=== PATIENT | female | born 1985 | race African-American/Black ===

== ENCOUNTER 2017-01-16 09:48 | Emergency (ER) | payer SELFPAY ==
[2017-01-16 10:04] VITALS: BP 144/95
--- NOTE | 2017-01-16 10:18 | ER Document Report ---
HPI - HPI Patient complains to provider of: Toothache Onset: Last week Onset/Duration: Persistent Quality of pain: Throbbing Severity: Moderate Pain Level: 4 Associated Symptoms: None Exacerbated by: Food Relieved by: Denies Similar symptoms previously: Yes Recently seen / treated by doctor: No - ROS ROS below otherwise negative: Yes Systems Reviewed and Negative: Yes All other systems reviewed and negative - CONSTITUTIONAL Constitutional: DENIES: Fever - EENT EENT: DENIES: Nasal Drainage-Purulent - NEURO Neurology: DENIES: Headache - CARDIOVASCULAR Cardiovascular: DENIES: Chest pain - RESPIRATORY Respiratory: DENIES: Trouble Breathing - GASTROINTESTINAL Gastrointestinal: DENIES: Abdominal Pain - URINARY Urinary: DENIES: Dysuria - REPRODUCTIVE Reproductive: DENIES: : - MUSCULOSKELETAL Musculoskeletal: DENIES: Extremity pain - DERM Skin Color: Normal Skin Problems: None Past Medical History - General Information source: Patient - Social History Smoking Status: Current Every Day Smoker Cigarette use (# per day): Yes Frequency of alcohol use: None Drug Abuse: None Lives with: Spouse/Significant other Family History: Reviewed & Not Pertinent Patient has suicidal ideation: No Patient has homicidal ideation: No - Medical History Medical History: Negative Surgical Hx: Negative - Immunizations Immunizations up to date: Yes Hx Diphtheria, Pertussis, Tetanus Vaccination: Yes Vertical Provider Document - CONSTITUTIONAL Agree With Documented VS: Yes Exam Limitations: No Limitations General Appearance: WD/WN, No Apparent Distress - INFECTION CONTROL TRAVEL OUTSIDE OF THE [place] IN LAST 30 DAYS: No - HEENT HEENT: Atraumatic Mouth Diagram: 1 - decay, no gum swelling Notes: Patient has very poor dentition, with multiple decayed and broken teeth. - NECK Neck: Normal Inspection - RESPIRATORY Respiratory: Breath Sounds Normal, No Respiratory Distress O2 Sat by Pulse Oximetry: 99 - CARDIOVASCULAR Cardiovascular: Regular Rate, Regular Rhythm - MUSCULOSKELETAL/EXTREMETIES Musculoskeletal/Extremeties: MAEW, FROM - NEURO Level of Consciousness: Awake, Alert, Appropriate - DERM Integumentary: Warm, Dry Course - Vital Signs Vital signs: Temp Pulse Resp BP Pulse Ox 97.9 F 77 16 144/95 H 99 01/16/17 10:03 01/16/17 10:03 01/16/17 10:03 01/16/17 10:03 01/16/17 10:03 Discharge - Discharge Clinical Impression: Toothache Condition: Good Disposition: HOME, SELF-CARE Instructions: Toothache ([facility]), Oral Narcotic Medication ([facility]), Penicillin V K ( [facility]) Additional Instructions: Meds as prescribed OTC ibuprofen for pain 3 times a day Follow-up with dentist for further evaluation of dental problems List of dental clinics provided to you return as needed Prescriptions: Hydrocodone/Acetaminophen [[place] 5-325 mg Tablet] 1 tab PO PRN PRN #15 tablet PRN Reason: Penicillin V Potassium [Penicillin Vk 250 mg Tablet] 250 mg PO Q6 #28 tablet Forms: Return to Work
== END 2017-01-16 10:20 | disposition home or self-care (01) ==
LOC: ER 09:48
DX: K08.89 Other specified disorders of teeth and supporting structures (principal); F17.210 Nicotine dependence, cigarettes, uncomplicated
CPT/HCPCS: 99282

== ENCOUNTER 2017-07-27 00:33 | Emergency (ER) | payer SELFPAY ==
[2017-07-27 00:43] VITALS: BP 156/108
--- NOTE | 2017-07-27 00:48 | ER Document Report ---
HPI - HPI Patient complains to provider of: left side tooth pain Onset: This morning Onset/Duration: Sudden Pain Level: 5 Context: 31-year-old smoker female that knows she has multiple teeth with decay is complaining of left-sided upper and lower tooth pain that woke her up tonight. No fever or facial swelling. Associated Symptoms: None Exacerbated by: Denies Relieved by: Denies Similar symptoms previously: Yes Recently seen / treated by doctor: No - ROS ROS below otherwise negative: Yes Systems Reviewed and Negative: Yes All other systems reviewed and negative - REPRODUCTIVE Reproductive: DENIES: : Past Medical History - General Information source: Patient - Social History Smoking Status: Current Every Day Smoker Frequency of alcohol use: Occasional Drug Abuse: None Lives with: Spouse/Significant other Family History: Reviewed & Not Pertinent - Medical History Medical History: Negative Renal/ Medical History: Denies: Hx Peritoneal Dialysis Surgical Hx: Negative - Immunizations Immunizations up to date: Yes Hx Diphtheria, Pertussis, Tetanus Vaccination: Yes Vertical Provider Document - CONSTITUTIONAL Agree With Documented VS: Yes Exam Limitations: No Limitations General Appearance: No Apparent Distress - INFECTION CONTROL TRAVEL OUTSIDE OF THE [place] IN LAST 30 DAYS: No - HEENT HEENT: Normocephalic Notes: extensive dental decay, plaque and gingivitis throughout, no abscess - NECK Neck: Supple. negative: Lymphadenopathy-Left, Lymphadenopathy-Right - RESPIRATORY Respiratory: Breath Sounds Normal, No Respiratory Distress O2 Sat by Pulse Oximetry: 100 - CARDIOVASCULAR Cardiovascular: Regular Rate, Regular Rhythm - NEURO Level of Consciousness: Awake, Alert, Appropriate - DERM Integumentary: Warm, Dry Course - Vital Signs Vital signs: Temp Pulse Resp BP Pulse Ox 98.4 F 94 156/108 H 100 07/27/17 00:39 07/27/17 00:39 07/27/17 00:39 07/27/17 00:39 Discharge - Discharge Clinical Impression: dental pain and decay, elevated blood pressure reading Condition: Good Disposition: HOME, SELF-CARE Instructions: Antinausea Medication ([facility]), Dentist, Family Physicians / Practices, Penicillin V K ([facility]), Toothache ([facility]), Topical Lidocaine ([facility]) Additional Instructions: see the dentist see family practice doctor for your blood pressure recheck to er if fever or facial swelling heat Prescriptions: Penicillin V Potassium [Penicillin Vk 500 mg Tablet] 500 mg PO QID #40 tablet
[2017-07-27] MEDS ORDERED: PENICILLIN V POTASSIUM 500 MG TABLET PO ONE (00:59)
[2017-07-27] MEDS ORDERED: LIDOCAINE 2% VISCOUS SOLN 20 ML UDCUP PO ONE (00:59)
[2017-07-27] MEDS ORDERED: ONDANSETRON 4 MG TAB.RAPDIS PO ONE (00:59)
[2017-07-27] MEDS ORDERED: ACETAMINOPHEN 325 MG TABLET PO ONE (00:59)
== END 2017-07-27 01:16 | disposition home or self-care (01) ==
LOC: ER 00:33
DX: K08.89 Other specified disorders of teeth and supporting structures (principal); K02.9 Dental caries, unspecified; R03.0 Elevated blood-pressure reading, without diagnosis of hypertension; F17.200 Nicotine dependence, unspecified, uncomplicated
CPT/HCPCS: 99282; S0119; J3490

== ENCOUNTER 2018-04-08 19:17 | Emergency (ER) | payer SELFPAY ==
[2018-04-08] MEDS ORDERED: ONDANSETRON HCL INJ/PF 4 MG/2 ML SDV IV ONE (20:34)
[2018-04-08] MEDS ORDERED: NORMAL SALINE 1000 ML 1,000 ML IV ONE (20:34)
[2018-04-08] MEDS ORDERED: ONDANSETRON 4 MG TAB.RAPDIS PO ONE (22:53)
--- NOTE | 2018-04-08 22:54 | ER Document Report ---
ED Medical Screen (RME) - General Chief Complaint: Nausea/Vomiting Stated Complaint: SORE THROAT Time Seen by Provider: 04/08/18 22:53 Notes: 32-year-old female with 2 different complaints. First complaint is and swelling on the left side of her neck. Second complaint is persistent vomiting today with generalized abdominal and flank pain with stomach upset. Unsure if she is . Denies vaginal bleeding or discharge. No fever. TRAVEL OUTSIDE OF THE [place] IN LAST 30 DAYS: No - Related Data Allergies/Adverse Reactions: No Known Allergies Allergy (Verified 01/16/17 10:00) Past Medical History Renal/ Medical History: Denies: Hx Peritoneal Dialysis - Immunizations Immunizations up to date: Yes Hx Diphtheria, Pertussis, Tetanus Vaccination: Yes Physical Exam - Vital signs Vitals: Temp Pulse Resp BP Pulse Ox 97.5 F 59 L 16 129/80 H 100 04/08/18 20:02 04/08/18 20:02 04/08/18 20:02 04/08/18 20:02 04/08/18 20:02 - HEENT Pharynx: No: Exudate, Uvular edema, Potential airway comprom. Neck: Anterior cervical chain - Left anterior cervical chain adenopathy - Abdominal Tenderness: Tender - Suprapubic and midabdominal tenderness, otherwise unremarkable exam Course - Vital Signs Vital signs: Temp Pulse Resp BP Pulse Ox 97.5 F 59 L 16 129/80 H 100 04/08/18 20:02 04/08/18 20:02 04/08/18 20:02 04/08/18 20:02 04/08/18 20:02
[2018-04-09 00:37] LABS: HEMATOCRIT 44.9 % (36.0-47.0); HEMOGLOBIN 14.6 g/dL (12.0-15.5); MEAN CORPUSCULAR HEMOGLOBIN 29.9 pg (27.0-33.4); MEAN CORPUSCULAR HGB CONC 32.6 g/dL (32.0-36.0); MEAN CORPUSCULAR VOLUME 92 fl (80-97); PLATELET COUNT 223 10^3/uL (150-450); RED CELL DISTRIBUTION WIDTH 13.3 % (11.5-14.0)
[2018-04-09 00:49] LABS: ALANINE AMINOTRANSFERASE 40 U/L (9-52); ALBUMIN 5.1 g/dL (3.5-5.0); ALKALINE PHOSPHATASE 59 U/L (38-126); ANION GAP 14 (5-19); ASPARTATE AMINO TRANSFERASE 40 U/L (14-36); BILIRUBIN,DIRECT 0.2 mg/dL (0.0-0.4); BLOOD UREA NITROGEN 11 mg/dL (7-20); CALCIUM 10.2 mg/dL (8.4-10.2); CARBON DIOXIDE 27 mmol/L (22-30); CHLORIDE 103 mmol/L (98-107); GLUCOSE 106 mg/dL (75-110); POTASSIUM 3.9 mmol/L (3.6-5.0); SODIUM 143.5 mmol/L (137-145); TOTAL PROTEIN 9.5 g/dL (6.3-8.2)
[2018-04-09 00:57] LABS: ABSOLUTE LYMPHOCYTES# (MANUAL) 0.6 10^3/uL (0.5-4.7); ABSOLUTE MONOCYTES # (MANUAL) 0.3 10^3/uL (0.1-1.4); ABSOLUTE NEUTROPHILS# (MANUAL) 13.2 10^3/uL (1.7-8.2); BASOPHILS % (MANUAL) 0 % (0-2); EOSINOPHILS % (MANUAL) 0 % (0-6); LYMPHOCYTES % (MANUAL) 4 % (13-45); MONOCYTES % (MANUAL) 2 % (3-13); PLATELET COMMENT ADEQUATE; PLATELET LARGE PRESENT; SCHISTOCYTES SLIGHT; SEGMENTED NEUTROPHILS % (MAN) 94 % (42-78); TOTAL CELLS COUNTED 100; TOXIC GRANULATION 1+
[2018-04-09 01:03] LABS: APPEARANCE,URINE SLIGHTLY-CLOUDY; BILIRUBIN,URINE NEGATIVE (NEGATIVE); COLOR,URINE YELLOW; GLUCOSE, URINE NEGATIVE (NEGATIVE); KETONES,URINE 20 mg/dL (NEGATIVE); LEUKOCYTE ESTERASE,URINE NEGATIVE (NEGATIVE); NITRITE,URINE NEGATIVE (NEGATIVE); PROTEIN,URINE 30 mg/dL (NEGATIVE); URINE SPECIFIC GRAVITY 1.021
[2018-04-09] MEDS ORDERED: DEXAMETHASONE 4 MG TABLET PO ONE (01:43)
[2018-04-09] MEDS ORDERED: CEPHALEXIN 500 MG CAPSULE PO ONE (01:43)
--- NOTE | 2018-04-09 01:47 | ER Document Report ---
ED General - General Chief Complaint: Nausea/Vomiting Stated Complaint: SORE THROAT Time Seen by Provider: 04/08/18 22:53 Notes: Patient is a 32 year old female without chronic medical problems who presents with 2 distinct complaints. Her first complaint is that she has had sore throat and left-sided neck discomfort for the past 24-48 hours. She states that she was in contact with somebody at work with strep pharyngitis and believes that she has the same. She notes a scratching, aching, throbbing pain to the back of her throat. Nothing improves or worsens this discomfort. She also notes swelling to her lymph nodes and left side of her neck that are also quite painful. No history of similar symptoms in the past. She denies any difficulty breathing or swallowing. Her second complaint is that she has had 2 weeks of intermittent bilateral flank and suprapubic abdominal discomfort that is not currently present. She states that the symptoms appear to be more present in the morning and then resolved throughout the day. She has not noted that anything seemed to trigger or relieve the pain. It is described as a burning, aching, stabbing pain. She denies a history of similar symptoms in the past. She also notes some mild dysuria. She has not seen her general doctor regarding the above concerns. TRAVEL OUTSIDE OF THE [place] IN LAST 30 DAYS: No - Related Data Allergies/Adverse Reactions: No Known Allergies Allergy (Verified 01/16/17 10:00) Past Medical History - General Information source: Patient - Social History Smoking Status: Current Every Day Smoker Chew tobacco use (# tins/day): No Frequency of alcohol use: None Drug Abuse: None Lives with: Spouse/Significant other Family History: Reviewed & Not Pertinent Patient has suicidal ideation: No Patient has homicidal ideation: No Renal/ Medical History: Denies: Hx Peritoneal Dialysis - Immunizations Immunizations up to date: Yes Hx Diphtheria, Pertussis, Tetanus Vaccination: Yes Review of Systems - Review of Systems Notes: Constitutional: Negative for fever. HENT: Positive for sore throat. Eyes: Negative for visual changes. Cardiovascular: Negative for chest pain. Respiratory: Negative for shortness of breath. Gastrointestinal: Positive for intermittent abdominal pain and nausea. Genitourinary: Positive for dysuria. Musculoskeletal: Negative for back pain. Skin: Negative for rash. Neurological: Negative for headaches, weakness or numbness. 10 point ROS negative except as marked above and in HPI. Physical Exam - Vital signs Vitals: Temp Pulse Resp BP Pulse Ox 97.5 F 59 L 16 129/80 H 100 04/08/18 20:02 04/08/18 20:02 04/08/18 20:02 04/08/18 20:02 04/08/18 20:02 Interpretation: Bradycardic Notes: PHYSICAL EXAMINATION: GENERAL: Well-appearing, well-nourished and in no acute distress. HEAD: Atraumatic, normocephalic. EYES: Pupils equal round and reactive to light, extraocular movements intact, sclera anicteric, conjunctiva are normal. ENT: nares patent, oropharynx clear without exudates. Mild tonsillar erythema bilaterally. Moist mucous membranes. NECK: Normal range of motion, left anterior cervical chain lymphadenopathy LUNGS: Breath sounds clear to auscultation bilaterally and equal. No wheezes rales or rhonchi. HEART: Regular rate and rhythm without murmurs ABDOMEN: Soft, nontender, normoactive bowel sounds. No guarding, no rebound. No masses appreciated. EXTREMITIES: Normal range of motion, no pitting or edema. No cyanosis. NEUROLOGICAL: No focal neurological deficits. Moves all extremities spontaneously and on command. PSYCH: Normal mood, normal affect. SKIN: Warm, Dry, normal turgor, no rashes or lesions noted. Course - Re-evaluation Re-evalutation: 04/09/18 01:45 Presentation of several days of sore throat in an otherwise well-appearing patient. Rapid strep is negative. History and exam are not consistent with a retropharyngeal abscess or peritonsillar abscess. Airway is patent. No difficulty handling oral secretions. Vitals within normal limits. Patient was treated with a dose of dexamethasone and advised on symptomatic care. Suspect likely viral pharyngitis. The patient has also complained of 2 weeks of intermittent bilateral flank pain and suprapubic abdominal pain. She denies these complaints at the time of my assessment. She has no focal abdominal tenderness, rebound or guarding on exam. She does have hematuria with scant bacteria on her urinalysis. Her history is most consistent with a urinary tract infection. Bedside renal ultrasound unremarkable. Clinical history and exam are not consistent with an acute appendicitis, TOA, pelvic inflammatory disease, biliary pathology, or an acute bowel obstruction. At this time will discharge with return precautions and follow-up recommendations. Verbal discharge instructions given a the bedside and opportunity for questions given. Medication warnings reviewed. Patient is in agreement with this plan and has verbalized understanding of return precautions and the need for primary care follow-up in the next 24-72 hours. 04/09/18 04:37 - Vital Signs Vital signs: Temp Pulse Resp BP Pulse Ox 97.5 F 67 16 118/70 100 04/08/18 20:02 04/09/18 00:15 04/09/18 02:00 04/09/18 02:00 04/09/18 02:01 - Laboratory Result Diagrams: 04/08/18 23:49 04/08/18 23:49 Laboratory results interpreted by me: 04/08/18 04/08/18 04/09/18 23:49 23:49 00:44 WBC 14.0 H Seg Neuts % (Manual) 94 H Lymphocytes % (Manual) 4 L Monocytes % (Manual) 2 L Abs Neuts (Manual) 13.2 H AST 40 H Total Protein 9.5 H Albumin 5.1 H Urine Protein 30 H Urine Ketones 20 H Urine Blood LARGE H Urine Urobilinogen 2.0 H Discharge - Discharge Clinical Impression: Viral pharyngitis Nausea and vomiting Qualifiers: Vomiting type: unspecified Vomiting Intractability: non-intractable Qualified Code(s): R11.2 - Nausea with vomiting, unspecified Hematuria Qualifiers: Hematuria type: unspecified type Qualified Code(s): R31.9 - Hematuria, unspecified Condition: Good Disposition: HOME, SELF-CARE Additional Instructions: Your strep test is negative. Your symptoms are likely due to an viral infection and will resolve in the next 1-2 weeks. You have also been given a dose of steroids to help with your throat discomfort. Please continue to take ibuprofen 600 mg every 6 hours or Tylenol 1000 mg every 6 hours as needed for throat discomfort. You can also gargle with salt water. Continue to drink plenty of fluids. Follow-up with your primary care doctor in the next several days. Return if you become unable to swallow, have difficulty breathing, pass out, have persistent vomiting that prevents you from being able to tolerate fluids, or have any other symptoms that are concerning to you. Your urine shows findings consistent with a urinary tract infection. Please take all the antibiotics as directed even if your symptoms have improved. Please follow-up with your primary care physician as needed. Return to emergency room if you develop fever >101F, persistent vomiting, become lethargic , have severe pain in your sides, or any other symptoms that are concerning to you. Prescriptions: Cephalexin Monohydrate [Keflex 500 mg Capsule] 500 mg PO Q6H 5 Days capsule
[2018-04-09 02:05] VITALS: BP 118/70
== END 2018-04-09 02:16 | disposition home or self-care (01) ==
LOC: ER 19:17
DX: J02.9 Acute pharyngitis, unspecified (principal); R11.2 Nausea with vomiting, unspecified; R31.9 Hematuria, unspecified; F17.200 Nicotine dependence, unspecified, uncomplicated
CPT/HCPCS: 99283; 36415; 87070; 87086; 87880; 84703; 85025; 80053; 81001; S0119

== ENCOUNTER 2018-11-27 13:43 | Emergency (ER) | payer SELFPAY ==
[2018-11-27] MEDS ORDERED: PENICILLIN V POTASSIUM 500 MG TABLET PO ONE (17:08)
--- NOTE | 2018-11-27 17:16 | ER Document Report ---
ED Oral Problem - General Chief Complaint: Neck Problem Stated Complaint: NECK PAIN Time Seen by Provider: 11/27/18 16:28 Mode of Arrival: Ambulatory Information source: Patient Notes: 32-year-old female presented to ED for complaint of lymphadenopathy to the left side of her neck. She states it is been painful for the last 4 days. She states is also been painful to swallow due to the swelling to the neck. Patient does have multiple cavities to include teeth that are decayed down to the gumline throughout her mouth. She states this is been for a long time. This is a 32-year-old female. She does smoke 3-4 cigarettes a day works at a [employer] and lives with her significant other. She is alert oriented respirations regular and unlabored speaking in full sentences no signs or symptoms of George's angina. TRAVEL OUTSIDE OF THE [place] IN LAST 30 DAYS: No - HPI Patient complains to provider of: Jaw pain, Toothache, Other - Lymphadenopathy left anterior cervical chain Onset: Other - 4 days Onset: Sudden Quality of pain: Achy - Sore, Other - Multiple dental cavities Severity: Moderate Pain Level: 3 Associated symptoms: Other - Multiple decayed teeth throughout her mouth with minimal left lymphadenopathy Worsened by: Other Relieved by: Nothing Similar symptoms previously: Yes Recently seen / treated by doctor/dentist: No - Related Data Allergies/Adverse Reactions: No Known Allergies Allergy (Verified 11/27/18 13:49) Past Medical History - General Information source: Patient - Social History Smoking Status: Current Every Day Smoker Cigarette use (# per day): Yes - 3-4 cigarettes a day Chew tobacco use (# tins/day): No Smoking Education Provided: Yes - 4 minutes Frequency of alcohol use: None Drug Abuse: None Occupation: [employer] Lives with: Spouse/Significant other Family History: Reviewed & Not Pertinent Patient has suicidal ideation: No Patient has homicidal ideation: No - Past Medical History Cardiac Medical History: Reports: None Pulmonary Medical History: Reports: None EENT Medical History: Reports: None Neurological Medical History: Reports: None Endocrine Medical History: Reports: None Renal/ Medical History: Reports: None Malignancy Medical History: Reports: None GI Medical History: Reports: None Musculoskeletal Medical History: Reports None Skin Medical History: Reports None Psychiatric Medical History: Reports: None Traumatic Medical History: Reports: None Infectious Medical History: Reports: None Surgical Hx: Negative Past Surgical History: Reports: None - Immunizations Immunizations up to date: Yes Hx Diphtheria, Pertussis, Tetanus Vaccination: Yes Review of Systems - Review of Systems Constitutional: No symptoms reported EENT: Throat pain, Dental problem, Other - Lymphadenopathy left anterior cervical chain Cardiovascular: No symptoms reported Respiratory: No symptoms reported Gastrointestinal: No symptoms reported Genitourinary: No symptoms reported Female Genitourinary: No symptoms reported Musculoskeletal: No symptoms reported Skin: No symptoms reported Hematologic/Lymphatic: No symptoms reported Neurological/Psychological: No symptoms reported -: Yes All other systems reviewed and negative Physical Exam - Vital signs Vitals: Temp Pulse Resp BP Pulse Ox 98.5 F 77 16 105/67 100 11/27/18 13:50 11/27/18 13:50 11/27/18 13:50 11/27/18 13:50 11/27/18 13:50 Interpretation: Normal - General General appearance: Appears well, Alert - HEENT Head: Normocephalic, Atraumatic Eyes: Normal Pupils: PERRL Ears: Normal External canal: Normal Tympanic membrane: Normal Sinus: Normal Nasal: Normal Mouth/Lips: Caries - Most of the teeth are decayed front for upper and lower teeth are severely decayed there are multiple other dental decay throughout her mouth Mucous membranes: Normal Pharynx: Normal Neck: Anterior cervical chain - Left, Lymphadenopathy Notes: No signs or symptoms of George's angina - Respiratory Respiratory status: No respiratory distress Chest status: Nontender Breath sounds: Normal Chest palpation: Normal - Cardiovascular Rhythm: Regular Heart sounds: Normal auscultation Murmur: No - Abdominal Inspection: Normal Distension: No distension Bowel sounds: Normal Tenderness: Nontender Organomegaly: No organomegaly - Back Back: Normal, Nontender - Extremities General upper extremity: Normal inspection, Nontender, Normal color, Normal ROM, Normal temperature General lower extremity: Normal inspection, Nontender, Normal color, Normal ROM, Normal temperature, Normal weight bearing. No: Josy's sign - Neurological Neuro grossly intact: Yes Cognition: Normal Orientation: AAOx4 Trinity Coma Scale Eye Opening: Spontaneous Trinity Coma Scale Verbal: Oriented [place] Coma Scale Motor: Obeys Commands [place] Coma Scale Total: 15 Speech: Normal Motor strength normal: LUE, RUE, LLE, RLE Sensory: Normal - Psychological Associated symptoms: Normal affect, Normal mood - Skin Skin Temperature: Warm Skin Moisture: Dry Skin Color: Normal Course - Vital Signs Vital signs: Temp Pulse Resp BP Pulse Ox 98.3 F 73 18 97/60 L 100 11/27/18 17:33 11/27/18 17:33 11/27/18 17:33 11/27/18 17:33 11/27/18 17:33 Discharge - Discharge Clinical Impression: Dental caries, Lymphadenopathy Condition: Stable Disposition: HOME, SELF-CARE Instructions: Family Physicians / Practices Additional Instructions: TOOTHACHE: Your pain is due to dental decay. The tooth must be repaired in order for you to feel better. You will, therefore, be referred to a dentist. We do not have dentists on the staff at [facility]. Severe swelling or drainage around a tooth usually means a dental abscess. This also requires evaluation and treatment by the dentist, but antibiotics may be prescribed while awaiting dental treatment. You should be rechecked immediately if you develop major swelling of the face, increasing pain, a lump in the jaw or gums, headache, difficulty swallowing, or fever. PENICILLIN V K: You have been given a prescription for Penicillin VK. Your physician has determined that this is the best antibiotic for your condition. Pen VK can be taken with meals, however more of the antibiotic gets into the bloodstream if it's taken on an empty stomach. Penicillin usually has no side effects. However, allergy to penicillins is common. If you have had an allergic reaction to any drug of the penicillin family, you should never take any other penicillin. Notify your doctor at once if you develop hives, itching, swelling, faintness, or shortness of breath. Lymphadenopathy You have enlargement of lymph glands, called lymphadenopathy. Lymph glands filter tissue fluids. They help to fight infection. Most of the time, enlarged lymph glands are not serious. Lymph glands may react to a viral or bacterial infection by becoming swollen and painful. When the infection goes away, the glands shrink. Sometimes a lymph gland will remain enlarged for a long time after an infection. Occasionally, a lymph gland may be overwhelmed by infection and form an abscess. If an enlarged lymph gland has signs that are suspicious for tumor, the doctor will recommend a biopsy. A suspicious gland usually is NOT painful, grows very slowly, and is rock-hard to touch. See the doctor or return if there is increasing swelling and redness, high fever, difficulty breathing, or any other change for the worse. Acetaminophen Acetaminophen may be taken for pain relief or fever control. It's much safer than aspirin, offering a wider range of "safe" dosages. It is safe during . Some brand names are Tylenol, Panadol, Datril, Anacin 3, Tempra, and Liquiprin. Acetaminophen can be repeated every four hours. The following are maximum recommended dosages: WEIGHT Dose Drops Elixir Chewable(80mg) (LBS.) drprs=droppers tsp=teaspoon 6 40 mg .4 ml (1/2) 6-11 80 mg .8 ml (full) 1/2 tsp 1 tab 12-16 120 mg 1 1/2 drprs 3/4 tsp 1 1/2 tabs 17-23 160 mg 2 drprs 1 tsp 2 tabs 24-30 240 mg 3 drprs 1 1/2 tsp 3 tabs 30-35 320 mg 2 tsp 4 tabs 36-41 360 mg 2 1/4 tsp 4 1/2 tabs 42-47 400 mg 2 1/2 tsp 5 tabs 48-53 480 mg 3 tsp 6 tabs 54-59 520 mg 3 1/4 tsp 6 1/2 tabs 60-64 560 mg 3 1/2 tsp 7 tabs 65-70 600 mg 3 3/4 tsp 7 1/2 tabs 71-76 640 mg 4 tsp 8 tabs 77-82 720 mg 4 1/2 tsp 9 tabs 83-88 800 mg 5 tsp 10 tabs >89 pounds or adults 650 mg to 900 mg Acetaminophen can be repeated every four hours. Maximum daily dose not to exceed 4000 mg. These maximum recommended dosages are slightly higher than the dosages written on the product container, but these dosages are very safe and well below the toxic dosage for acetaminophen. FOLLOW-UP CARE: You have been referred for follow-up care to the dentists listed below. Call the dentists office for an appointment as you were instructed or within the next two days. If you experience worsening or a significant change in your symptoms, notify the physician immediately or return to the Emergency Department at any time for re-evaluation. [facility] [address] [place], [place] [facility] [address] [place] [address] [facility] [address] [facility] [address] [email or web address] [address] [place] [address] Sunday- 8:00am to 5:00 pm Will see patients from other [facility]. Charges based on income and family size and accepts Medicare, Medicaid, and Insurances Will pull molars [facility] [id number] Hours of Operation 8:00 am - 4:30 pm weekdays The following dental offices accept Medicaid: [facility] Dr. Peacock Dr. Ramírez Dr. Zhang Dr. Haynes Josue Peres L[place], and [facility] oral [facility] Dr. Huang ([place]) Dr. Valenzuela ([place]) [facility] Drs. Franklin and Lebron ([place]) Dr. Barron ([place]) [facility] Dr. Shabazz ([place]) Drs. Veronica and ([place]) Medicaid Care Line Prescriptions: Penicillin V Potassium [Penicillin Vk 500 mg Tablet] 500 mg PO BID #20 tablet Forms: Smoking Cessation Education, Return to Work
[2018-11-27 17:35] VITALS: BP 97/60
== END 2018-11-27 17:35 | disposition home or self-care (01) ==
LOC: ER 13:43
DX: K02.9 Dental caries, unspecified (principal); R59.1 Generalized enlarged lymph nodes; F17.210 Nicotine dependence, cigarettes, uncomplicated
CPT/HCPCS: 99282; 99406

== ENCOUNTER 2020-04-29 09:44 | Emergency (ER) | payer SELFPAY ==
[2020-04-29] MEDS ORDERED: DIPH/PERTUSS(ACELL)/TETANUS VAC/PF 0.5 ML SYR (>=10YO) IM ONE ×2 (09:45→13:30)
[2020-04-29] MEDS ORDERED: CEFAZOLIN 2 GM/D5W RTU 2 GM/50 ML RTUPB IV ONE (09:46)
[2020-04-29] MEDS ORDERED: OXYCODONE-ACETAMINOPHEN 5-325 MG TABLET PO ONE ×2 (09:46→13:42)
[2020-04-29] MEDS ORDERED: KETOROLAC TROMETHAMINE INJ/PF 30 MG/1 ML SDV IV ONE (09:46)
--- NOTE | 2020-04-29 09:48 | ER Document Report ---
ED Medical Screen (RME) - General Chief Complaint: Dog Bite Stated Complaint: DOG BITE Time Seen by Provider: 04/29/20 09:45 Notes: HPI: 34-year-old female presenting to dog bite to both hands from pit mix at home. She is the farmworker fryer farm of both dogs. Fed 1 and the other one attacked and she tried to separate them and was bitten on both hands. Complains of multiple lacerations to both hands with pain. She states dogs are up-to-date on vaccina tions she is not up-to-date on her tetanus vaccination. PHYSICAL EXAMINATION: Multiple superficial bites and punctures to the left hand. Multiple superficial bites and punctures to the right hand. There is an open wound on the distal phalanx of the right third finger with slight avulsion of the fingertip and nail. Sensation intact in the distal tip of the finger to touch with capillary refill less than 3 seconds I have greeted and performed a rapid initial assessment of this patient. A comprehensive ED assessment and evaluation of the patient, analysis of test results and completion of medical decision making process will be conducted by an additional ED providers. TRAVEL OUTSIDE OF THE [place] IN LAST 30 DAYS: No - Related Data Allergies/Adverse Reactions: No Known Allergies Allergy (Verified 11/27/18 13:49) Past Medical History Renal/ Medical History: Denies: Hx Peritoneal Dialysis - Immunizations Immunizations up to date: Yes Hx Diphtheria, Pertussis, Tetanus Vaccination: Yes
--- NOTE | 2020-04-29 10:29 | RADIOLOGY REPORT (SQ) ---
EXAM DESCRIPTION: HAND BILATERAL 3 VIEWS IMAGES COMPLETED DATE/TIME: 04/29/2020 10:10 am REASON FOR STUDY: dog bite COMPARISON: None. EXAM PARAMETERS: NUMBER OF VIEWS: Six views. TECHNIQUE: AP, lateral and oblique radiographic images acquired of the right and left hand. LIMITATIONS: None. FINDINGS: MINERALIZATION: Normal. BONES: Comminuted nondisplaced fracture distal tuft right 3rd phalanx. JOINTS: Intact. SOFT TISSUES: Subcutaneous gas radial aspect of the left metacarpals. No foreign body. OTHER: No other significant finding. IMPRESSION: Open fracture distal tuft right 3rd phalanx. Skin lacerations left hand. No foreign efrain dy. TECHNICAL DOCUMENTATION: JOB ID: [id number] 2010 [employer]- All Rights Reserved Reading location - IP/workstation name: [email or web address]
[2020-04-29] MEDS ORDERED: MORPHINE SULFATE 10 MG/ML INJ IV ONE (15:29)
--- NOTE | 2020-04-29 15:41 | ER Document Report ---
ED General - General Chief Complaint: Dog Bite Stated Complaint: DOG BITE Time Seen by Provider: 04/29/20 09:45 Primary Care Provider: FAMILIA HERNÁNDEZ [Primary Care Provider] - Follow up as needed TRAVEL OUTSIDE OF THE [place] IN LAST 30 DAYS: No - HPI Notes: Chief complaint: Dog bites History of present illness: 34-year-old female presenting to dog bite to both hands from pit mix at home. She is the package line operator of both dogs. Fed 1 and the other one attacked and she tried to separate them and was bitten on both hands. Complains of multiple lacerations to both hands with pain. She states dogs are up-to-date on vaccinations she is not up-to-date on her tetanus vaccination. No regular medications. No known allergies. - Related Data Allergies/Adverse Reactions: No Known Allergies Allergy (Verified 11/27/18 13:49) Past Medical History - General Information source: Patient - Social History Smoking Status: Current Every Day Smoker Frequency of alcohol use: Occasional Drug Abuse: None Lives with: Friend Family History: Reviewed & Not Pertinent - Medical History Medical History: Negative Renal/ Medical History: Denies: Hx Peritoneal Dialysis - Immunizations Immunizations up to date: Yes Hx Diphtheria, Pertussis, Tetanus Vaccination: Yes Review of Systems - Review of Systems Notes: Constitutional: Negative for fever. HENT: Negative for sore throat. Eyes: Negative for visual changes. Cardiovascular: Negative for chest pain. Respiratory: Negative for shortness of breath. Gastrointestinal: Negative for abdominal pain, vomiting or diarrhea. Genitourinary: Negative for dysuria. Musculoskeletal: As per HPI. Skin: Negative for rash. Neurological: Negative for headaches, weakness or numbness. 10 point ROS negative except as marked above and in HPI. Physical Exam - Vital signs Vitals: Temp Pulse Resp BP Pulse Ox 98.0 F 115 H 20 128/101 H 100 04/29/20 09:46 04/29/20 09:46 04/29/20 09:46 04/29/20 09:46 04/29/20 09:46 - Notes Notes: GENERAL: Slender female approximately stated age who has multiple puncture wounds of both hands and appears quite uncomfortable. SKIN: Good turgor no rashes. HEAD: Normocephalic atraumatic. EYES: PERRLA. EOMI. Conjunctivae and sclerae clear. EARS: CANALS AND TMS CLEAR. NOSE: CLEAR. MOUTH: Moist mucosa. Advanced decay of all the teeth with periodontal disease. No stridor or edema. No drooling. NECK: Supple. No masses or thyromegaly. No adenopathy. Carotids 2+ without bruits. No JVD. BACK: Symmetrical without tenderness. CHEST: Respirations unlabored. Breath sounds clear and symmetrical. HEART: Regular rhythm. No murmur gallop or rub. ABDOMEN: Soft nontender without masses, organomegaly or rebound. Bowel sounds normally active. No bruits. GENITALIA: Deferred. EXTREMITIES: Multiple superficial bites and punctures to the left hand. Multiple superficial bites and punctures to the right hand. There is an open wound on the distal phalanx of the right third finger with slight avulsion of the fingertip and nail. Sensation intact in the distal tip of the finger to touch with capillary refill less than 3 seconds.Dorsalis pedis and posterior tibial pulses 3+ and symmetrical. NEUROLOGICAL: GCS 15. Alert and oriented x3. Normal gait. Fluent speech. Cranial nerves II through XII intact. Sensorimotor and cerebellar normal. Normal tone. PSYCHIATRIC: Anxious affect. Course - Re-evaluation Re-evalutation: Patient received analgesics and a booster on her tetanus. She was given IV antibiotic here. I explained to her that none of the wounds were appropriate for suturing because these are dog bites. All the wounds have been irrigated. Sterile dressings and antibiotic ointment applied. X-ray shows some open distal tuft fracture of the right third finger. This is been splinted appropriately. Patient is referred for early orthopedic follow-up. 04/29/20 15:43 Findings, clinical impression and plan of treatment have been discussed with p atient/family. Understanding of current findings and recommendations has been acknowledged by them and there is agreement regarding disposition and follow-up. - Vital Signs Vital signs: Temp Pulse Resp BP Pulse Ox 98.0 F 115 H 20 128/101 H 100 04/29/20 09:46 04/29/20 09:46 04/29/20 09:46 04/29/20 09:46 04/29/20 09:46 Procedures - Immobilization Right Hand 3rd digit Pre-Proc Neuro Vasc Exam: Normal Immobilizer type: Finger splint (Static) Performed by: PCT Post-Proc Neuro Vasc Exam: Normal Alignment checked and good: Yes Discharge - Discharge Clinical Impression: Dog bites, Puncture wounds both hands, Open fracture of tuft of distal phalanx of finger Condition: Stable Disposition: HOME, SELF-CARE Additional Instructions: Animal Bites Animal bites are often heavily contaminated with bacteria. In spite of thorough cleansing and proper treatment, these wounds frequently become infected. Bite wounds of the hands are especially prone to complications. Bites are dressed, if possible. Large wounds may require suturing after internal cleansing. Because of infection risk, some large wounds must remain unstitched. Your doctor is trained to advise you on the best treatment for your bite. Call the doctor at once if the wound becomes red, swollen, warm, increasingly painful, or if it begins to drain. Danger signs also include red streaks up the involved extremity, swollen glands in the groin or under the arm, or fever and chills. The risk of rabies from domestic animals is very low. Bats, sick animals, and wild animals may expose you to rabies. The physician, or the health department, will inform you if you will need to receive the rabies vaccine. You have received a prescription for antibiotic medication and a prescription for a narcotic medication for pain will be transmitted to your pharmacy. A work note for the next 3 days has been provided for you. You have been given the telephone number of an orthopedic doctor to follow-up with. Return here as needed for new or worsening symptoms: Pain that is worsening or unimproved Uncontrolled vomiting High fever or shaking chills Overall worsening Prescriptions: Amoxicillin/Potassium Clav [Augmentin 875-125 Tablet] 1 tab PO BID 10 Days #20 tablet Oxycodone HCl/Acetaminophen [Percocet 5-325 mg Tablet] 1 - 2 tab PO Q4H PRN #15 tablet PRN Reason: Forms: Smoking Cessation Education, Elevated Blood Pressure, Return to Work Referrals: LOCAL,NO [Primary Care Provider] - Follow up as needed BAO COVARRUBIAS JR, DO [ACTIVE PROVISIONAL STAFF] - Follow up as needed
[2020-04-29 16:08] VITALS: BP 127/92
== END 2020-04-29 16:08 | disposition home or self-care (01) ==
LOC: ER 09:44
PROC: 2W3JX1Z Immobilization of Right Finger using Splint (ICD-10-PCS; principal; 2020-04-29)
DX: S62.632B Displaced fracture of distal phalanx of right middle finger, initial encounter for open fracture (principal); S61.452A Open bite of left hand, initial encounter; W54.0XXA Bitten by dog, initial encounter; F17.200 Nicotine dependence, unspecified, uncomplicated; F41.0 Panic disorder [episodic paroxysmal anxiety]
CPT/HCPCS: 99284; 90471; 96375; 96365; 73130; 90715; 29130; J1885; J0690

== ENCOUNTER 2020-05-06 10:20 | Day surgery (SDC) | payer SELFPAY ==
[~2020-05-06 10:20] MED LIST: LIDOCAINE 2% INJ-PF (20 MG/ML) 2 ML AMPUL ONE; ONDANSETRON HCL INJ/PF 4 MG/2 ML SDV ONE
[2020-05-06 11:14] LABS: HEMATOCRIT 36.4 % (36.0-47.0); HEMOGLOBIN 12.2 g/dL (12.0-15.5); MEAN CORPUSCULAR HEMOGLOBIN 30.4 pg (27.0-33.4); MEAN CORPUSCULAR HGB CONC 33.4 g/dL (32.0-36.0); MEAN CORPUSCULAR VOLUME 91 fl (80-97); PLATELET COUNT 183 10^3/uL (150-450); RED BLOOD COUNT 4.01 10^6/uL (3.72-5.28); RED CELL DISTRIBUTION WIDTH 13.4 % (11.5-14.0); WHITE BLOOD COUNT 3.6 10^3/uL (4.0-10.5)
[2020-05-06 11:19] LABS: APPEARANCE,URINE CLEAR; BILIRUBIN,URINE NEGATIVE (NEGATIVE); COLOR,URINE STRAW; GLUCOSE, URINE NEGATIVE (NEGATIVE); KETONES,URINE NEGATIVE (NEGATIVE); LEUKOCYTE ESTERASE,URINE NEGATIVE (NEGATIVE); NITRITE,URINE NEGATIVE (NEGATIVE); PROTEIN,URINE NEGATIVE (NEGATIVE); UROBILINOGEN,URINE NEGATIVE mg/dL (<2.0)
--- NOTE | 2020-05-06 11:19 | RADIOLOGY REPORT (SQ) ---
EXAM DESCRIPTION: CHEST SINGLE VIEW IMAGES COMPLETED DATE/TIME: 05/06/2020 11:04 am REASON FOR STUDY: PRE OP COMPARISON: 06/23/2015 NUMBER OF VIEWS: One view. TECHNIQUE: Single frontal radiographic view of the chest acquired. LIMITATIONS: None. FINDINGS: LUNGS AND PLEURA: No opacities, masses or pneumothorax. No pleural effusion. MEDIASTINUM AND HILAR STRUCTURES: No masses. Contour normal. HEART AND VASCULAR STRUCTURES: Heart normal in size. Normal vasculature. BONES: No acute findings. HARDWARE: None in the chest. OTHER: No other significant finding. IMPRESSION: NO SIGNIFICANT RADIOGRAPHIC FINDING IN THE CHEST. TECHNICAL DOCUMENTATION: JOB ID: [id number] 2010 [employer]- All Rights Reserved Reading location - IP/workstation name: [email or web address]
[2020-05-06 11:39] LABS: BLOOD UREA NITROGEN 11 mg/dL (7-20); CALCIUM 9.1 mg/dL (8.4-10.2); CARBON DIOXIDE 26 mmol/L (22-30); GLUCOSE 84 mg/dL (75-110)
[2020-05-06 11:41] LABS: ANION GAP 7 (5-19); CHLORIDE 106 mmol/L (98-107)
[2020-05-06] MEDS ORDERED: CEFAZOLIN 2 GM/D5W RTU 2 GM/50 ML RTUPB IV ONE (11:44)
[2020-05-06 12:00] LABS: ERYTHROCYTE SEDIMENTATION RATE 15 mm/hr (0-20)
[2020-05-06] MEDS ORDERED: FENTANYL CITRATE INJ/PF 100 MCG/2 ML AMPUL ONE (12:59)
[2020-05-06] MEDS ORDERED: PROPOFOL INJ 200 MG/20 ML VIAL IV ONE ×2 (12:59→14:38)
[2020-05-06] MEDS ORDERED: MIDAZOLAM 2 MG/2 ML INJ ONE (12:59)
[2020-05-06] MEDS ORDERED: LIDOCAINE 1% INJ-PF (10 MG/ML) 30 ML SDV ONE (13:30)
[2020-05-06] MEDS ORDERED: KETOROLAC TROMETHAMINE INJ/PF 30 MG/1 ML SDV ONE (13:30)
[2020-05-06] MEDS ORDERED: BUPIVACAINE HCL 0.5 % INJ/PF 30 ML SDV ONE (13:30)
[2020-05-06] MEDS ORDERED: MEPERIDINE HCL/PF INJ 25 MG/1 ML DISP.SYRIN IV PRN (13:53)
[2020-05-06] MEDS ORDERED: DIPHENHYDRAMINE HCL 50 MG/ML VIAL IV PRN (13:53)
[2020-05-06] MEDS ORDERED: FENTANYL CITRATE INJ/PF 100 MCG/2 ML AMPUL IV PRN ×3 (13:53)
[2020-05-06] MEDS ORDERED: OXYCODONE-ACETAMINOPHEN 5-325 MG TABLET PO PRN ×2 (13:53)
[2020-05-06] MEDS ORDERED: ONDANSETRON HCL INJ/PF 4 MG/2 ML SDV IV PRN (13:53)
[2020-05-06] MEDS ORDERED: PROMETHAZINE HCL INJ 25 MG/1 ML VIAL IV PRN ×2 (13:53)
--- NOTE | 2020-05-06 14:53 | Operative Report ---
Operative Report DATE OF SURGERY: 05/06/20 PREOPERATIVE DIAGNOSIS: Right middle finger tuft fracture, near amputation. Le ft thenar puncture wound, dog bite POSTOPERATIVE DIAGNOSIS: Right middle finger tuft fracture, near amputation. Left thenar puncture wound, dog bite OPERATION: Right distal phalanx open reduction internal fixation, I&D, nailbed repair. Left thenar I&D SURGEON: BAO COVARRUBIAS JR ANESTHESIA: Moderate Sedation COMPLICATIONS: None ESTIMATED BLOOD LOSS: 5 cc PROCEDURE: The patient was brought to the operating suite and laid supine on the operating table. She was given 2 g Ancef preoperatively. She was placed under moderate sedation. Bilateral upper extremities were then prepped and draped in sterile sterile fashion. Appropriate timeout was performed. The left hand was addressed first. There are multiple lacerations that all appeared healthy on the dorsum of the hand. The thenar eminence had a puncture wound with exposed fatty tissue that was protruding through the puncture. This was approximately 4 mm in length. Local anesthetic was provided. The incision was extended slightly both distal and proximal allowing for removal of fatty and nonviable tissue and then thorough irrigation with dilute Betadine solution. After thorough irrigation a single portal stitch with 2-0 Monocryl was placed into the wound. Sterile dressing was then placed. We then turned our attention to the right hand. A digital block was provided to the finger prior to exploration. The right middle finger was placed under tourniquet with a Deborah drain. The dorsum of the distal phalanx was lacerated through the nailbed with fingernail remaining both proximally and distally. The laceration continued to the mid coronal plane on either side allowing for a volar hinge with adequate blood supply. Appropriate bleeding was encountered throughout the wound. The radial wound appeared to have involved the digital ne rve, but the ulnar digital nerve appeared to be spared. The fingernail was removed both distally and proximally and completion with a [place]. The wound was copiously irrigated, explored and gently debrided of any nonviable tissue. This was then copiously irrigated again followed by keying in the nailbed tissue. This was then sutured with a 5-0 Monocryl in a running locked fashion. Upon getting good approximation with anatomic reduction of the nailbed. The fracture was evaluated under fluoroscopy. There still was some slight ulnar deviation of the fracture as well as volar deviation. A K wire was then introduced into the distal aspect and was then joysticks in the place for near-anatomic reduction of the fracture. This was then advanced to the base of the proximal phalanx. After this the laceration on either side of the paronychia was closed with 2-0 Monocryl followed by placing a protecting ball on the K wire and then clipping the K wire. A sterile dressing was then placed followed by a aluminum splint. The patient was then awakened from anesthesia and transferred to the PACU in stable condition.
--- NOTE | 2020-05-06 14:57 | Discharge Summary ---
Discharge Summary (SDC) - Discharge Final Diagnosis: Right middle finger tuft fracture, near complete amputation. Left hand puncture wound dog bite to the thenar eminence. Date of Surgery: 05/06/20 Discharge Date: 05/06/20 Condition: Stable Forms: ASU Anesthesia D/C Instruction, Discharge POC-Surgical Service Treatment or Instructions: Patient is to leave dressing in place for the next 3 to 5 days. After this time she may soak it in Dakin's solution to allow for easier removal of the dressing and subsequently continued dressing changes as needed. There is a nylon spacer in the area of the fingernail which can be removed after 3 to 5 days. If it falls out with the dressing change that is okay. Dressing changes to the left hand may be changed daily and are no longer needed when dry. I am providing further antibiotics for the next week. The patient is to follow- up in my office in 10 days for removal of the K wire in her right third digit. Prescriptions: Amoxicillin/Potassium Clav [Augmentin 875-125 Tablet] 1 tab PO BID 7 Days #14 Referrals: BAO COVARRUBIAS JR, DO [ACTIVE PROVISIONAL STAFF] - Discharge Diet: As Tolerated Respiratory Treatments at Home: Deep Breathing/Coughing Discharge Activity: No Driving, No Lifting/Push/Pulling, No tub bath Report the Following to Your Physician Immediately: Fever over 101 Degrees, Unusual Bleeding, Drainage-Yellow
--- NOTE | 2020-05-06 15:15 | RADIOLOGY REPORT (SQ) ---
EXAM DESCRIPTION: NO CHG FLUORO; FINGER RIGHT IMAGES COMPLETED DATE/TIME: 05/06/2020 3:05 pm REASON FOR STUDY: RIGHT FINGER PERC PINNING ASSISTED WITH FLUORO IN OR S62.639B DISP FX OF DISTAL P HALANX OF UNSP FINGER, INIT FOR S62.632B DISP FX OF DISTAL PHALANX OF R MID FINGER, INIT FOR COMPARISON: None. FLUOROSCOPY TIME: 7 second 2 images saved to PACS. TECHNIQUE: Intra-operative images acquired during surgical procedure to evaluate progress. NUMBER OF IMAGES: 2 LIMITATIONS: None. FINDINGS: Orthopedic pin fixation of recently described fracture distal tuft. IMPRESSION: IMAGE(S) OBTAINED DURING PROCEDURE. COMMENT: Quality ID 145: Final reports for procedures using fluoroscopy that document radiation exp osure indices, or exposure time and number of fluorographic images (if radiation exposure indices are not available) Please consult full operative report of the attending physician for description of the procedure. TECHNICAL DOCUMENTATION: JOB ID: [id number] 2010 [employer]- All Rights Reserved Reading location - IP/workstation name: [email or web address]
--- NOTE | 2020-05-06 15:15 | RADIOLOGY REPORT (SQ) ---
EXAM DESCRIPTION: NO CHG FLUORO; FINGER RIGHT IMAGES COMPLETED DATE/TIME: 05/06/2020 3:05 pm REASON FOR STUDY: RIGHT FINGER PERC PINNING ASSISTED WITH FLUORO IN OR S62.639B DISP FX OF DISTAL P HALANX OF UNSP FINGER, INIT FOR S62.632B DISP FX OF DISTAL PHALANX OF R MID FINGER, INIT FOR COMPARISON: None. FLUOROSCOPY TIME: 7 second 2 images saved to PACS. TECHNIQUE: Intra-operative images acquired during surgical procedure to evaluate progress. NUMBER OF IMAGES: 2 LIMITATIONS: None. FINDINGS: Orthopedic pin fixation of recently described fracture distal tuft. IMPRESSION: IMAGE(S) OBTAINED DURING PROCEDURE. COMMENT: Quality ID 145: Final reports for procedures using fluoroscopy that document radiation exp osure indices, or exposure time and number of fluorographic images (if radiation exposure indices are not available) Please consult full operative report of the attending physician for description of the procedure. TECHNICAL DOCUMENTATION: JOB ID: [id number] 2010 [employer]- All Rights Reserved Reading location - IP/workstation name: [email or web address]
[2020-05-06] MEDS ORDERED: OXYCODONE HCL IR 5 MG TABLET ONE (15:24)
[2020-05-06] MEDS ORDERED: OXYCODONE HCL IR 5 MG TABLET PO PRN (15:32)
[2020-05-06] MEDS ORDERED: MORPHINE SULFATE 10 MG/ML INJ IV PRN (15:32)
[2020-05-06 16:58] VITALS: BP 127/96
--- NOTE | 2020-05-06 22:06 | EKG REPORT ---
SEVERITY:- NORMAL ECG - SINUS RHYTHM : Confirmed by: Edelmira Redd MD 06-May-2020 22:06:25
== END 2020-05-06 16:40 | disposition home or self-care (01) ==
LOC: OROUT 10:20
PROVIDERS: ATTEND Orthopaedic Surgery
DX: S62.632B Displaced fracture of distal phalanx of right middle finger, initial encounter for open fracture (principal); S61.032A Puncture wound without foreign body of left thumb without damage to nail, initial encounter; S61.412A Laceration without foreign body of left hand, initial encounter; W54.0XXA Bitten by dog, initial encounter; Z03.818 Encounter for observation for suspected exposure to other biological agents ruled out; F17.210 Nicotine dependence, cigarettes, uncomplicated; Z01.810 Encounter for preprocedural cardiovascular examination; Z01.811 Encounter for preprocedural respiratory examination
CPT/HCPCS: 36415; 85027; 85652; 87635; 81025; 80048; 81001; 71045; 73140; 93005; 93010; 01830; 11010; 11760; 11042; C1713; J2250; J3490 ×3; J3010; J1885; J2405; J2704; J0690; C9803